=== PATIENT | female | born 1990 | race Two or more races ===

== ENCOUNTER 2024-01-23 23:05 | Emergency (ER) | payer OTHER ==
[~2024-01-23] VITALS: Ht 154.9 cm; Wt 113.6 kg
[2024-01-24] MEDS: ACETAMINOPHEN 500 MG TABLET PO ONE (02:23)
[2024-01-24] MEDS: AmLODIPine BESYLATE 5 MG TABLET PO ONE (04:58)
[2024-01-24 05:35] VITALS: BP 170/93; PULSE 72; RESP 16; TEMP 98.2
[2024-01-24] MEDS ORDERED: AMLO-257 PO (06:07)
== END 2024-01-24 06:08 | disposition home or self-care (01) ==
LOC: EMS 23:10
DX: S06.0X0A Concussion without loss of consciousness, initial encounter (principal); S80.01XA Contusion of right knee, initial encounter; I10 Essential (primary) hypertension; W19.XXXA Unspecified fall, initial encounter; Y93.89 Activity, other specified; Y92.89 Other specified places as the place of occurrence of the external cause; Y99.8 Other external cause status
CPT/HCPCS: 70450; 99284